=== PATIENT | female | born 1960 | race Caucasian/White ===

== ENCOUNTER 2016-11-25 10:49 | Emergency (ER) | payer OTHER ==
[2016-11-25 12:05] LABS: BASOPHIL 0.6 % (0-2); EOSINOPHIL 3.2 % (0-5); HCT 41.8 % (37.0-47.0); LYMPHOCYTE 18.2 % (15-48); MCH 30.1 pg (25.0-31.0); MCHC 33.5 g/dL (32.0-36.0); MCV 89.9 fL (78.0-100.0); MONOCYTE 5.7 % (0-12); MPV 9.8 fL (6.0-9.5); NEUTROPHIL 72.3 % (41-80); PLT 318 K/uL (150-400); RBC 4.65 M/uL (4.20-5.40); RDW 12.1 % (11.5-14.0); WBC 10.7 K/uL (4.0-10.5)
[2016-11-25 12:07] LABS: INR 0.89 (0.9-1.2); PROTHROMBIN TIME 11.7 SECONDS (11.7-14.0)
[2016-11-25 12:17] LABS: ALBUMIN 4.7 g/dL (3.5-5.0); BILIRUBIN - TOTAL 0.4 mg/dL (0.1-1.0); GLOBULIN (CALCULATION) 3.1 g/dL (2.2-4.2); POTASSIUM 4.3 mmol/L (3.5-5.1); TOTAL PROTEIN 7.8 g/dL (6.4-8.3)
== END 2016-11-25 14:45 | disposition home or self-care (01) ==
LOC: FER 10:49
PROVIDERS: Emergency Medicine
DX: K52.9 Noninfective gastroenteritis and colitis, unspecified (principal)
CPT/HCPCS: 36415; 80053; 83690; 85025; 85610; J2270; J2405